=== PATIENT | female | born 1995 | race Caucasian/White ===

== ENCOUNTER 2016-06-19 04:23 | Emergency (ER) | payer OTHER ==
[~2016-06-19] VITALS: Ht 170.2 cm; Wt 72.7 kg
[~2016-06-19 04:23] MED LIST: ACET325T51 PO; ASCO-294 PO; CLIN-78 PO; IBUP400T22 PO; MULT-1018 PO; OXYC1TAB24 PO
[2016-06-19 04:44] VITALS: BP 129/90; PULSE 114; RESP 18; O2SAT 98
--- NOTE | 2016-06-19 07:42 | ED.REPORT ---
HPI-Rash / Abscess Date of Service Jun 19, 2016 ED Provider: Kailash Rodriguez MD History of Present Illness: OCC Patient is a 20 year old female who presents to the ED complaining of an abscess on the left side of her neck. She injected heroin at the site 5 days ago. Associated symptoms include redness, pain, and swelling. She denies fever, chills, leg infection, or any other symptoms. Nursing Notes Stated Complaint: SWELLING ON L SHOULDER Chief Complaint: Skin Rash/Abscess Nursing Notes Reviewed: Yes (Egenera not reconciled) Allergies: Coded Allergies: No Known Allergies (Verified Allergy, Unknown, 06/19/16) Scheduled Acetaminophen (Acetaminophen) 325 Mg Tablet 325 MG PO Q4H Ascorbate Calcium (Vitamin C) 500 Mg Tablet 500 MG PO DAILY Clindamycin (Clindamycin) 300 Mg Capsule 300 MG PO QID Clindamycin (Clindamycin) 300 Mg Capsule 300 MG PO QID Ibuprofen (Ibuprofen) 400 Mg Tablet 400 MG PO QID Multivitamin (Multi Vitamin Daily) 1 Each Tablet 1 EACH PO DAILY Scheduled PRN oxyCODONE-Acetaminophen 5-325 mg (oxyCODONE-Acetaminophen 5-325 mg) 1 Each Tablet 1-2 TAB PO TID PRN PRN For Pain oxyCODONE-Acetaminophen 5-325 mg (oxyCODONE-Acetaminophen 5-325 mg) 1 Each Tablet 1-2 TAB PO Q6H PRN PRN For Pain General Time Seen by MD: 07:39 Chief Complaint Tender/swollen area Hx Obtained From: Patient Arrived By: Walk-in Onset Occurred: 5 days ago Symptom Duration: Since onset Past Medical History Past Medical History L arm abscess 12/02/15 +MRSA ho IVDA Past Surgical History None reported Reports: Tonsillectomy Family History noncontributory Smoking History Current Every Day Smoker Social History Alcohol Use: Denies alcohol use Drug Use: IV drugs, Meth, Other (Heroin) Other Social History: Local resident Ambulatory Status Independent Review of Systems Constitutional: Denies: Chills, Fever Musculoskeletal: Reports: Neck pain (Site of tenderness, redness) Skin: Reports Swelling (L neck) Complete sys rev & neg: except as marked. Physical Exam Initial Vital Signs Vital Signs (First) Date Time Temp Pulse Resp B/P Pulse Ox O2 Delivery O2 Flow Rate FiO2 06/19/16 04:44 36.9 114 18 129/90 98 Room Air Initial VS: Reviewed, Vital signs normal Head / Eyes: Atraumatic, Normocephalic Respiratory: No respiratory distress Abdomen / GI: Soft, Non-tender Neurologic: Alert, Oriented, Nonfocal Psychiatric: Mood/affect normal, Behavior normal, Normal thought content General/Constitutional: No acute distress, Well appearing, Not toxic appearing Skin: Intact Area of reddness, induration, and tenderness consistent with localized infection on the L neck/ shoulder area just above clavical No fluctuance Upper Extremity / MS: No swelling Track masterson present Neck: Full range of motion Interpretation & Diagnostics US Soft Tissue/Musculoskeletal IMPRESSION: The area of phlegmonous change measuring up to 2.4 cm exactly correlates with the region of clinical concern, and its superficial margin is approximately 1 cm believe the skin surface. In the setting of conversion from phlegmon to drainable abscess it is possible that even currently there is debris that could be removed by incision and drainage. That could be marked on the skin surface by ultrasound guidance if clinically desired. Dictated by: Immanuel Wilkinson M.D. on 06/19/2016 at 10:14 Approved by: Immanuel Wilkinson M.D. on 06/19/2016 at 10:14 Exam Performed by: Allied health pract Exam Type: Diagnostic Exam Interpreted by: Radiologist Indication: Swelling, Redness, Pain Re-Eval/Medical Decision Med Decision/Clinical Course This is a 20-year-old female with a history of IVDA presents with redness and swelling or she has been injecting in the left side of her neck kind of just above the clavicle where the shoulder and neck meet. (It does not involve the lateral aspect of the neck and is probably better described as supraclavicular then true neck) She is afebrile, clinically nontoxic, but does have an area of redness and induration. There is no gross fluctuance, there is no crepitus. Tract masterson but no other signs of active infection. An ultrasound was obtained and revealed cellulitis/phlegmon but no fluid collection amenable to incision and drainage is evident. Therefore empiric treatment with antibiotics is warranted. Given them a polymicrobial possibilities, clindamycin was used. Patient received an IM dose of clindamycin , she is being discharged within the course of a 4 times a day for 10 days. I have also written for a few Percocet for pain control. Routine precautions reviewed, including the need to return to the bridge [place] if she does develop or coalesce into a drainable abscess ) Source of Hx: Old records Re-Evaluation/Progress : Time of Eval: 09:52 Re-Evaluation/Progress Note: Discussed US results with patient and plan for discharge. Patient understands and agrees with plan. All questions addressed at this time. Differential Diagnosis: Positive: Cellulitis, Negative: Gangrene, Kawasaki's disease, Lichen planus, Osteomyelitis, Bobby mt spotted fever, Scarlet fever Discharge & Departure Impression: Primary Impression: Cellulitis Site of cellulitis: neck Qualified Code: L03.221 - Cellulitis of neck Additional Impressions: Phlegmon IV drug abuse Substance abuse Disposition: Home Discharge Condition All VS Reviewed: Yes Condition: Stable Additional Instructions: 1. This ultrasound did not reveal an abscess that requires drainage. 2. There is a localized infection-colored cellulitis and a phlegmon (localized inflammation/infection) 3. Take the antibiotic clindamycin 300mg FOUR times a day for 10 days 4. Take oxycodone/APAP 5/325 1-2 tabs up to every 4-6 hours for pain. NOTE: This medication contains a narcotic and causes drowsiness. NO driving for at least 4 hours after taking. 5. Symptoms should be clearly improving in 2-3 days (it takes a bit for the antibiotics to work.) If not improving, or if any worsening - return directly to the ED. Referrals: [facility] (PCP) Scribe Attestation Portions of this note were transcribed by Tony Conner. I, Dr. Rodriguez personally performed the history, physical exam and medical decision-making; I reviewed and confirmed the accuracy of the information in the transcribed note. Signed by: Tony Conner 06/19/16, 1000 copies to: [facility] Kailash Rodriguez MD Jun 19, 2016 07:42 TONY CONNER Jun 19, 2016 07:56
[2016-06-19] MEDS ORDERED: Clindamycin 150 mg/mL 2 mL Inj IM ONE (07:50)
[2016-06-19] MEDS ORDERED: CLIN-78 PO (09:57)
[2016-06-19] MEDS ORDERED: OXYC1TAB24 PO (09:57)
--- NOTE | 2016-06-19 10:17 | DRSVH ---
PROCEDURE: US EXTREMITY SONOGRAM LIMITED ([id number]) INDICATIONS: L neck/shoulder - eval for ? abscess TECHNIQUE: Real-time scanning was performed of the left neck in the area of current clinical concern for underlying infection, with image documentation. COMPARISON: [facility], , US EXTREMITY LTD, 06/17/2015, 13:50. FINDINGS: There is a region of phlegmonous change estimated to be approximately 1 cm beneath the skin surface in the area of clinical concern measuring up to 2.0 x 2.4 x 1.0 cm, with reactive lymph node s that are small in size in this general region of the left neck. IMPRESSION: The area of phlegmonous change measuring up to 2.4 cm exactly correlates with the region of clinical concern, and its superficial margin is approximately 1 cm believe the skin surface. In t he setting of conversion from phlegmon to drainable abscess it is possible that even currently there is debris that could be removed by incision and drainage. That could be marked on the skin surface b y ultrasound guidance if clinically desired. Dictated by: Immanuel Wilkinson M.D. on 06/19/2016 at 10:14 Approved by: Immanuel Wilkinson M.D. on 06/19/2016 at 10:14
[2016-06-19 10:29] VITALS: BP 107/62; PULSE 104; RESP 16; O2SAT 98
== END 2016-06-19 10:31 | disposition home or self-care (01) ==
LOC: SED 04:23
DX: L03.221 Cellulitis of neck (principal); L02.11 Cutaneous abscess of neck; F11.10 Opioid abuse, uncomplicated; F17.200 Nicotine dependence, unspecified, uncomplicated